=== PATIENT | female | born 1940 | race Caucasian/White ===

== ENCOUNTER 2019-07-13 12:55 | Observation (INO) | payer MEDICARE, OTHER ==
[2019-07-13] MEDS ORDERED: Sodium Chloride 0.9% 10 ML Syringe FLUSH PRN ×2 (12:59→14:00)
--- NOTE | 2019-07-13 13:13 | EDM.PDOC ---
ED HPI GENERAL MEDICAL PROBLEM - General Chief Complaint: Cardiovascular Problem Stated Complaint: CHEST PAIN Time Seen by Provider: 07/13/19 13:00 Source of Information: Reports: Patient History Limitations: Reports: No Limitations - History of Present Illness INITIAL COMMENTS - FREE TEXT/NARRATIVE: 78 YO WM presents to ER complaining of left sided chest pain which began 2 months ago. Pt reports she was seen in the clinic 2 weeks ago and had an evaluation with EKG, CXR, and blood work which patient states was normal as far as she knows. Pt reports over the last month she has noticed some pain in her left arm as well. Pt denies associated shortness of breath, nausea/vomiting, lightheadedness or diaphoresis. Pt denies any recent illnesses. Pt was given a salve to put on her chest which hasn't relieved her symptoms. Pt called the clinic today to get another appointment for these pains and she was told to go to ER for evaluation. Pt denies exertional pain and states pain is worse when she is laying down and less when she is active. Pt denies CAD, Pulmonary dz, or smoking history. Pt denies URI symptoms or fever/chills. No lower extremity swelling, HRT or long travel or sedentary lifestyle. Duration: Chronic, Recurring, Waxing/Waning Location: Reports: Chest Quality: Reports: Ache Severity: Mild Improves with: Reports: None Worsens with: Reports: None Associated Symptoms: Reports: No Other Symptoms, Chest Pain. Denies: Cough, Fever/Chills, Nausea/Vomiting, Shortness of Breath - Related Data Allergies Allergy/AdvReac Type Severity Reaction Status Date / Time amoxicillin [From Augmentin] Allergy Rash Verified 07/13/19 12:59 Cephalosporins Allergy Rash Verified 07/13/19 13:32 clavulanic acid Allergy Rash Verified 07/13/19 12:59 [From Augmentin] Influenza Virus Vaccines Allergy Other Verified 07/13/19 13:32 Home Meds: Home Meds Ascorbate Calcium [Vitamin C] 500 mg PO BID 07/13/19 [History] Calcium Carbonate/Vitamin D3 [Calcium Carbonate/Vitamin D 600 MG-200 Unit] 1 tab PO BID 07/13/19 [History] Carbinoxamine Maleate 4 mg PO QID PRN 07/13/19 [History] Cholecalciferol (Vitamin D3) [Vitamin D3] 1 cap PO DAILY 07/13/19 [History] Lactobacillus Acidophilus [Probiotic] 1 cap PO DAILY 07/13/19 [History] Multivitamin [Daily Multiple Vitamin] 1 tab PO DAILY 07/13/19 [History] Mupirocin 1 applic TOP BID PRN 07/13/19 [History] Rup Rub 1 applic TOP BID 07/13/19 [History] atorvaSTATin [Lipitor] 10 mg PO BEDTIME 07/13/19 [History] ED ROS GENERAL - Review of Systems Review Of Systems: See Below Constitutional: Reports: No Symptoms HEENT: Reports: No Symptoms Respiratory: Reports: No Symptoms Cardiovascular: Reports: Chest Pain Endocrine: Reports: No Symptoms GI/Abdominal: Reports: No Symptoms : Reports: No Symptoms Musculoskeletal: Reports: Arm Pain Skin: Reports: No Symptoms Neurological: Reports: No Symptoms Psychiatric: Reports: No Symptoms Hematologic/Lymphatic: Reports: No Symptoms Immunologic: Reports: No Symptoms ED EXAM, GENERAL - Physical Exam Exam: See Below Exam Limited By: No Limitations General Appearance: Alert, WD/WN, No Apparent Distress Eye Exam: Bilateral Eye: PERRL Nose: Normal Inspection, Normal Mucosa, No Blood Throat/Mouth: Normal Inspection, Normal Lips, Normal Teeth, Normal Gums, Normal Oropharynx, Normal Voice, No Airway Compromise Head: Atraumatic, Normocephalic Neck: Normal Inspection, Supple, Non-Tender, Full Range of Motion Respiratory/Chest: No Respiratory Distress, Lungs Clear, Normal Breath Sounds, No Accessory Muscle Use, Chest Non-Tender Cardiovascular: Normal Peripheral Pulses, Regular Rate, Rhythm, No Edema, No Gallop, No JVD, No Murmur, No Rub GI/Abdominal: Normal Bowel Sounds, Soft, Non-Tender, No Organomegaly, No Distention, No Abnormal Bruit, No Mass Back Exam: Normal Inspection, Full Range of Motion, NT Extremities: Normal Inspection, Normal Range of Motion, Non-Tender, Normal Capillary Refill, No Pedal Edema Neurological: Alert, Oriented, CN II-XII Intact, Normal Cognition, Normal Gait, Normal Reflexes, No Motor/Sensory Deficits Psychiatric: Normal Affect, Normal Mood Skin Exam: Warm, Dry, Intact, Normal Color, No Rash Lymphatic: No Adenopathy EKG INTERPRETATION EKG Date: 07/13/19 Time: 13:12 Rhythm: NSR Rate (Beats/Min): 70 [place]: Normal P-Wave: Present QRS: Normal ST-T: Normal QT: Normal Comparison: NA - No Prior EKG Course - Vital Signs Last Recorded V/S: Last Vital Signs Temp 36.6 C 07/13/19 13:04 Pulse 75 07/13/19 13:04 Resp 16 07/13/19 13:04 BP 146/77 H 07/13/19 13:04 Pulse Ox 99 07/13/19 13:04 - Orders/Labs/Meds Orders: Active Orders 24 hr Category Date Time Status Patient Status Manage Transfer [TRANSFER] Routine ADT 07/13/19 15:11 Active Patient Status [ADT] Routine ADT 07/13/19 15:13 Active Cardiac Monitoring [RC] CONTINUOUS Care 07/13/19 15:13 Active EKG Documentation Completion [RC] ASDIRECTED Care 07/13/19 12:59 Active Oxygen Therapy [RC] PRN Care 07/13/19 15:13 Active Peripheral IV Care [RC] . DIRECTED Care 07/13/19 12:59 Active Up ad Ximena [RC] ASDIRECTED Care 07/13/19 15:13 Active VTE/DVT Education [RC] PER UNIT ROUTINE Care 07/13/19 15:13 Active Vital Signs [RC] Q4H Care 07/13/19 15:13 Active Heart Healthy Diet [DIET] Diet 07/13/19 Lunch Active TROPONIN I [CHEM] Timed Lab 07/13/19 17:00 Ordered Aspirin Med 07/13/19 15:15 Once 324 mg PO ONETIME ONE Nitroglycerin [Nitro-Bid 2%] Med 07/13/19 15:15 Once 1 gm TOP ONETIME ONE Sodium Chloride 0.9% [Saline Flush] Med 07/13/19 12:59 Active 10 ml FLUSH Q8HR PRN Peripheral IV Insertion Adult [OM.PC] Routine Oth 07/13/19 12:59 Ordered Resuscitation Status Routine Resus Stat 07/13/19 15:13 Ordered EKG 12 Lead [EK] Routine Ther 07/13/19 12:59 Ordered Medication Orders Sodium Chloride (Saline Flush) 10 ml FLUSH Q8HR PRN PRN Reason: keep vein open Labs: Laboratory Tests 07/13/19 07/13/19 Range/Units 13:15 13:15 WBC 5.65 (5.00-10.00) 10^3/uL RBC 4.04 (3.80-5.50) 10^6/uL Hgb 12.4 (12.0-16.0) g/dL Hct 37.2 (37.0-47.0) % MCV 92.1 H (82.0-92.0) fL MCH 30.7 (27.0-31.0) pg MCHC 33.3 (32.0-36.0) g/dL RDW 12.5 (11.5-14.5) % Plt Count 262 (150-400) 10^3/uL MPV 9.0 (7.4-10.4) fL Immature Gran % (Auto) 0.2 (0.0-5.0) % Neut % (Auto) 53.9 (50.0-70.0) % Lymph % (Auto) 31.7 (20.0-40.0) % [place] % (Auto) 9.6 H (2.0-8.0) % Eos % (Auto) 3.9 H (1.0-3.0) % Baso % (Auto) 0.7 (0.0-1.0) % Immature Gran # (Auto) 0.01 (0.00-0.50) 10^3/uL Neut # (Auto) 3.05 (2.50-7.00) 10^3/uL Lymph # (Auto) 1.79 (1.00-4.00) 10^3/uL [place] # (Auto) 0.54 (0.10-0.80) 10^3/uL Eos # (Auto) 0.22 (0.10-0.30) 10^3/uL Baso # (Auto) 0.04 (0.00-0.10) 10^3/uL Sodium 138 (136-145) mmol/L Potassium 4.2 (3.3-5.3) mmol/L Chloride 95 L (98-115) mmol/L Carbon Dioxide 27.8 (21.0-32.0) mmol/L Anion Gap 19.4 H (5-15) mmol/L BUN 15 (6-25) mg/dL Creatinine 0.63 (0.51-1.17) mg/dL Est Cr Clr Drug Dosing TNP Estimated GFR (MDRD) > 60 mL/min Glucose 106 H (75 - 99) mg/dL Calcium 9.1 (8.7-10.3) mg/dL Total Bilirubin 0.3 (0.2-1.0) mg/dL AST 23 (15-37) U/L ALT 25 (12-78) U/L Alkaline Phosphatase 33 L (46-116) IU/L Creatine Kinase 143 (26-276) U/L CK-MB (CK-2) 2.00 (0.00-4.30) ng/mL Troponin I 0.04 (0.00-0.070) ng/mL B-Natriuretic Peptide 124 H (0-100) pg/mL Total Protein 6.7 (6.4-8.2) g/dL Albumin 3.40 (3.00-4.80) g/dL Meds: Medications Generic Name Dose Route Start Last Admin Trade Name Freq PRN Reason Stop Dose Admin Sodium Chloride 10 ml 07/13/19 12:59 Saline Flush FLUSH Q8HR PRN keep vein open Departure - Departure Time of Disposition: 15:16 Disposition: Refer to Observation Condition: Good Clinical Impression: Chest pain Referrals: Britney Mars PA-C [Primary Care Provider] - Forms: ED Department Discharge Sepsis Event Note - Focused Exam Vital Signs: Vital Signs Temp Pulse Resp BP Pulse Ox 07/13/19 13:04 36.6 C 75 16 146/77 H 99 Date Exam was Performed: 07/13/19 Time Exam was Performed: 15:15 - My Orders Last 24 Hours: My Active Orders 07/13/19 12:59 EKG Documentation Completion [RC] ASDIRECTED Peripheral IV Care [RC] . DIRECTED Sodium Chloride 0.9% [Saline Flush] 10 ml FLUSH Q8HR PRN Peripheral IV Insertion Adult [OM.PC] Routine EKG 12 Lead [EK] Routine 07/13/19 15:11 Patient Status Manage Transfer [TRANSFER] Routine 07/13/19 15:13 Patient Status [ADT] Routine Cardiac Monitoring [RC] CONTINUOUS Oxygen Therapy [RC] PRN Up ad Ximena [RC] ASDIRECTED VTE/DVT Education [RC] PER UNIT ROUTINE Vital Signs [RC] Q4H Resuscitation Status Routine 07/13/19 15:15 Aspirin 324 mg PO ONETIME ONE Nitroglycerin [Nitro-Bid 2%] 1 gm TOP ONETIME ONE 07/13/19 17:00 TROPONIN I [CHEM] Timed 07/13/19 Lunch Heart Healthy Diet [DIET] - Assessment/Plan Last 24 Hours: My Active Orders 07/13/19 12:59 EKG Documentation Completion [RC] ASDIRECTED Peripheral IV Care [RC] . DIRECTED Sodium Chloride 0.9% [Saline Flush] 10 ml FLUSH Q8HR PRN Peripheral IV Insertion Adult [OM.PC] Routine EKG 12 Lead [EK] Routine 07/13/19 15:11 Patient Status Manage Transfer [TRANSFER] Routine 07/13/19 15:13 Patient Status [ADT] Routine Cardiac Monitoring [RC] CONTINUOUS Oxygen Therapy [RC] PRN Up ad Ximena [RC] ASDIRECTED VTE/DVT Education [RC] PER UNIT ROUTINE Vital Signs [RC] Q4H Resuscitation Status Routine 07/13/19 15:15 Aspirin 324 mg PO ONETIME ONE Nitroglycerin [Nitro-Bid 2%] 1 gm TOP ONETIME ONE 07/13/19 17:00 TROPONIN I [CHEM] Timed 07/13/19 Lunch Heart Healthy Diet [DIET] Assessment:: 1. chest pain Plan: 1. admit to obs- Dr Gary Escamilla 2. nitro/ASA 3. supportive care 4. serial trop I x Q4 x 3
--- NOTE | 2019-07-13 13:38 | CR ---
[id number] RAD/RAD Chest PA And Lateral EXAM: RAD Chest PA And Lateral INDICATION: PAIN. COMPARISON: July 30, 2012. DISCUSSION: Cardiomediastinal silhouette is normal in size and contour. No infiltrate, effusion, pneumothorax, or edema. No radiographically evident rib fracture. IMPRESSION: No acute findings. Arron Dave MD 07/13/19 [id number] Thank you for allowing us to participate in the care of your patient.
[2019-07-13 14:01] LABS: ANION GAP 19.4 mmol/L (5-15); CHLORIDE,CL 95 mmol/L (98-115); SODIUM,NA 138 mmol/L (136-145)
[2019-07-13] MEDS ORDERED: Nitroglycerin 2% Oint 1 GM UD Packet TOP ONE (15:15)
[2019-07-13] MEDS ORDERED: Aspirin 81 MG Tab.Chew PO ONE (15:15)
[2019-07-13] MEDS ORDERED: Mupirocin Crm 15 GM Tube TOP PRN (19:59)
[2019-07-13] MEDS ORDERED: CARBINOXAMINE MALEATE 4 MG PO PRN (19:59)
[2019-07-13] MEDS ORDERED: Calcium Citrate/Vitamin D3 315 MG-250 Unit Tab PO SCH (21:00)
[2019-07-13] MEDS ORDERED: Diclofenac Sodium 1% Gel 100 GM Tube TOP SCH (21:00)
[2019-07-13] MEDS ORDERED: atorvaSTATin 10 MG Tab PO SCH (21:00)
--- NOTE | 2019-07-13 21:42 | HP ---
PATIENT PROFILE: The patient is a 78-year-old white female from [place], [place]. HISTORY OF PRESENT ILLNESS: This very pleasant patient present to the emergency room complaining of left-sided chest pain which actually began 2 months ago. Over the last 2 weeks, the pain has gotten worse. She was seen in the clinic 2 weeks ago and had an EKG, chest x-ray, and blood work, which the patient states was normal as far she knows. The patient has for the last 1 month noticed increased pain in her left arm as well. She denies having coughing, shortness of breath, nausea, vomiting, lightheadedness, or diaphoresis. She denies having any fever or recent illnesses except for slight cold. She had been using some type of ointment to relieve her discomfort. The patient had called the clinic for another appointment and was told to come to the emergency room for further evaluation. The patient denies having any exertional pain, but states that the pain is worse when she lies down and less when she is active. The pain does not otherwise change much with position. The patient denies having any history of coronary artery disease, pulmonary embolism, pulmonary diagnosis, or smoking history. She denies having any lower extremity swelling, hormone replacement therapy, or any long travels or sedentary lifestyles. Severity is mild to moderate. PAST MEDICAL HISTORY: No major medical problems. PAST SURGICAL HISTORY: No major surgical problems. MEDICATIONS: Home medications include: 1. Vitamin C 500 mg b.i.d. 2. Calcium carbonate with vitamin D3 at 600/200 units one tablet b.i.d. 3. Carbinoxamine maleate 4 mg up to 4 times a day on a p.r.n. basis (antihistamine). 4. Vitamin D3 one capsule daily. 5. Lactobacillus acidophilus probiotic 1 capsule daily. 6. Multivitamin tablet 1 daily. 7. Mupirocin ointment b.i.d. on a p.r.n. basis. 8. Rub-Rub application 1 b.i.d. 9. Atorvastatin 10 mg at bedtime. FAMILY HISTORY: Nil significant. REVIEW OF SYSTEMS: HEAD: No complaints. NECK: Complains of pain in the left side of the neck. EYES: No complaints. EARS, NOSE, AND THROAT: No complaints. RESPIRATORY: No complaints. CARDIOVASCULAR: Complaints of chest pain on the left side. It is not made worse upon breathing or by respiratory effort. ENDOCRINE: No complaints. GI SYSTEM: No complaints. SYSTEM: No complaints. MUSCULOSKELETAL: See present history. SKIN: No complaints. NEUROLOGICAL: No complaints. PSYCHIATRIC: No complaints. HEMATOLOGICAL: No complaints. IMMUNOLOGICAL: No complaints. PHYSICAL EXAMINATION: GENERAL: Reveals a very pleasant, elderly patient, in no immediate distress. She was examined in the room. She is alert, well oriented to space, time, and person. VITAL SIGNS: Rhythm is 70, temperature 36.6 centigrade, pulse 75, respirations 16, blood pressure 146/77, oxygen saturation 99%. HEAD: Negative. EYES: Arcus senilis. EARS, NOSE, AND THROAT: Normal. NECK: Supple. Full range of motion. No midline swellings. Carotid pulses are full and equal. Trachea is midline. No lymph node enlargement. HEART: Regular rhythm. No thrills. No murmurs. LUNGS: Clear to percussion and auscultation. ABDOMEN: Soft. No masses. No tenderness. No hepatosplenomegaly. No abnormal pulsations. EXTREMITIES: Normal. No peripheral edema noted. Femoral pulses are full and equal. NEUROLOGICAL: Essentially intact. RECTAL: Deferred. LABORATORY DATA: EKG shows normal sinus rhythm. Olive normal. QRS normal, ST-segment normal, QT normal. Her hemoglobin is 12.4, white count 5.65, platelet count is 262. MCV is slightly high at 92.1, normal 92. Her complete metabolic panel shows an anion gap of 19.4, normal 15. Otherwise, all other values are negative. Beta-natriuretic BNP was 124, total protein is 6.7. IMPRESSION/PLAN: Elderly patient with left-sided chest pain. Question atypical angina, question non ST-segment elevation myocardial infarction, question musculoskeletal. Plan: Serial enzymes and close observation. Repeat EKGs and continue with some of the old medications including atorvastatin. /[id number]/MODL MTDD
[2019-07-13] MEDS: Clopidogrel 75 MG Tab PO SCH (22:46)
[2019-07-13] MEDS: Enoxaparin 60 MG/0.6 ML Syringe SUBCUT SCH (22:46)
[2019-07-14] MEDS ORDERED: Multivitamins with Minerals/Iron/Folic Acid/Lycopene Tab PO SCH (09:00)
[2019-07-14] MEDS ORDERED: Diclofenac Sodium 1% Gel 100 GM Tube TOP SCH (09:00)
[2019-07-14] MEDS ORDERED: B.Bifidum/B.Longum/L.Acidophilus/L.Rhamnosus (Probiotic) Cap PO SCH (09:00)
[2019-07-14] MEDS ORDERED: Cholecalciferol (Vitamin D3) 25 MCG Tab PO SCH (09:00)
[2019-07-14] MEDS ORDERED: Calcium Citrate/Vitamin D3 315 MG-250 Unit Tab PO SCH (09:00)
[2019-07-14] MEDS: Enoxaparin 60 MG/0.6 ML Syringe SUBCUT SCH (09:06)
[2019-07-14] MEDS: Clopidogrel 75 MG Tab PO SCH (09:07)
--- NOTE | 2019-07-14 10:40 | PCM.DCSUM1 ---
Discharge Summary - Hospital Course Diagnosis: Stroke: No - Discharge Data Discharge Date: 07/14/19 Discharge Disposition: Home, Self-Care 01 Condition: Good - Referral to Home Health Primary Care Physician: Britney Mars PA-C - Patient Instructions Diet: Usual Diet as Tolerated Activity: As Tolerated Driving: May Drive Today Showering/Bathing: May Shower Notify Provider of: Increased Pain, Nausea and/or Vomiting Other/Special Instructions: Medical care if the pain changes, increases or if associated with sweating or radiating down into your arm or into your neck or back - Discharge Plan *PRESCRIPTION DRUG MONITORING PROGRAM REVIEWED*: Not Applicable *COPY OF PRESCRIPTION DRUG MONITORING REPORT IN PATIENT RANDI: Not Applicable Prescriptions/Med Rec: Celecoxib [CeleBREX] 100 mg PO DAILY #30 cap Home Medications: Home Meds Ascorbate Calcium [Vitamin C] 500 mg PO BID 07/13/19 [History] Calcium Carbonate/Vitamin D3 [Calcium Carbonate/Vitamin D 600 MG-200 Unit] 1 tab PO BID 07/13/19 [History] Carbinoxamine Maleate 4 mg PO QID PRN 07/13/19 [History] Cholecalciferol (Vitamin D3) [Vitamin D3] 1 cap PO DAILY 07/13/19 [History] Echinacea [Echinacea Herb] 1 cap PO DAILY 07/13/19 [History] Lactobacillus Acidophilus [Probiotic] 1 cap PO DAILY 07/13/19 [History] Multivitamin [Daily Multiple Vitamin] 1 tab PO DAILY 07/13/19 [History] Mupirocin 1 applic TOP BID PRN 07/13/19 [History] Rup Rub 1 applic TOP BID 07/13/19 [History] atorvaSTATin [Lipitor] 10 mg PO BEDTIME 07/13/19 [History] Celecoxib [CeleBREX] 100 mg PO DAILY #30 cap 07/14/19 [Rx] Referrals: Britney Mars PA-C [Primary Care Provider] - 07/21/19 10:00 am - Discharge Summary/Plan Comment DC Time >30 min.: Yes Discharge Summary/Plan Comment: Final diagnosis Chest wall pain, NON-specific, suspect inflammatory flare costochondritis Prehospital/ED history/work-up 78-year-old pleasant female presented to the ED yesterday due to left-sided chest pain which began ~2 months ago. Patient was evaluated outpatient [facility] had a EKG, CXR, and blood work. EKG reviewed by me dated June [address] aberrancy. Denotes over the last month she has noticed some pain in her left arm as well. With her pain she denies any associated SOB, nausea vomiting or any lightheadedness or diaphoresis. Pt denies any recent illnesses. Patient did noted topical NSAID anterior chest wall without any relief in her symptoms. No exertional pain and stated pain is worse when she is laying down and less when she is active. Pt denies CAD, Pulmonary dz, or smoking history. Pt denies URI symptoms or fever/chills. No lower extremity swelling, HRT or long travel or sedentary lifestyle. Duration: Chronic, Recurring, Waxing/Waning. He was admitted overnight for rule out WA. Favorable lipid profile ED findings Initial troponin negative EKG NSR, Vital signs stable Electrolytes normal chest X-ray normal BNP 126 Hospital course Was admitted into observation, reviewed overnight ECG strips, normal sinus rhythm without any current/aberrancy. Did have Nitropaste placed on her without any benefit, she slept well, her anterior chest wall pain waxed and waned however this appeared positional. Pain stable, no complications, no adverse reactions to medications treatments. She tolerated her diet well. She had no shortness of breath. Lipids CHO 199 HDL 77 LDL 104 Triglycerides 89 Medication changes/adjustments upon discharge Celebrex 100 mg p.o. twice daily 2 weeks, no PPI needed. Patient can continue all other home medications Disposition/MDM/overall plan --Patient will be discharged from [facility] self-alf --Echocardiogram morning of discharge [facility] --ACS has been ruled out, low test probability of CAD very doubtful of any flow- limiting disease due to pain characteristics, duration, quality, intensity, relieving/aggravating factors and low CV risks and the fact the patient did not rule IN for CAD on predictability models. Recommendations at follow-up --Could consider Coronary Calcium Scoring, however would avoid stress testing as she has very low probability of CAD with high chance of false positives. --Likely not a good ASA candidate for primary prevention based off sx, PHX, family hx. --Review echo - General Info Functional Status: Reports: Other (Low-level 2/10 pain reproducible anterior left-sided chest wall pain) - Review of Systems General: Denies: Fever, Weakness, Fatigue HEENT: Reports: No Symptoms Pulmonary: Reports: No Symptoms Cardiovascular: Reports: Chest Pain, Edema (1+ BLE ankle edema). Denies: Dyspnea on Exertion, Orthopnea, PND, Lightheadedness Gastrointestinal: Reports: No Symptoms Genitourinary: Reports: No Symptoms Musculoskeletal: Reports: Other (chest wall pain) Skin: Reports: No Symptoms Neurological: Reports: No Symptoms Psychiatric: Reports: No Symptoms - Patient Data Vitals - Most Recent: Last Vital Signs Temp 97.4 F 07/14/19 06:50 Pulse 64 07/14/19 06:50 Resp 16 07/14/19 06:50 BP 116/70 07/14/19 06:50 Pulse Ox 98 07/14/19 06:50 Weight - Most Recent: 133 lb 14.4 oz I&O - Last 24 hours: Intake & Output 07/13/19 07/14/19 07/14/19 22:59 06:59 14:59 Intake Total 400 0 Balance 400 0 Lab Results - Last 24 hrs: Laboratory Results - last 24 hr 07/13/19 07/13/19 07/13/19 Range/Units 13:15 13:15 17:02 WBC 5.65 (5.00-10.00) 10^3/uL RBC 4.04 (3.80-5.50) 10^6/uL Hgb 12.4 (12.0-16.0) g/dL Hct 37.2 (37.0-47.0) % MCV 92.1 H (82.0-92.0) fL MCH 30.7 (27.0-31.0) pg MCHC 33.3 (32.0-36.0) g/dL RDW 12.5 (11.5-14.5) % Plt Count 262 (150-400) 10^3/uL MPV 9.0 (7.4-10.4) fL Immature Gran % (Auto) 0.2 (0.0-5.0) % Neut % (Auto) 53.9 (50.0-70.0) % Lymph % (Auto) 31.7 (20.0-40.0) % Hughes % (Auto) 9.6 H (2.0-8.0) % Eos % (Auto) 3.9 H (1.0-3.0) % Baso % (Auto) 0.7 (0.0-1.0) % Immature Gran # (Auto) 0.01 (0.00-0.50) 10^3/uL Neut # (Auto) 3.05 (2.50-7.00) 10^3/uL Lymph # (Auto) 1.79 (1.00-4.00) 10^3/uL Hughes # (Auto) 0.54 (0.10-0.80) 10^3/uL Eos # (Auto) 0.22 (0.10-0.30) 10^3/uL Baso # (Auto) 0.04 (0.00-0.10) 10^3/uL Sodium 138 (136-145) mmol/L Potassium 4.2 (3.3-5.3) mmol/L Chloride 95 L (98-115) mmol/L Carbon Dioxide 27.8 (21.0-32.0) mmol/L Anion Gap 19.4 H (5-15) mmol/L BUN 15 (6-25) mg/dL Creatinine 0.63 (0.51-1.17) mg/dL Est Cr Clr Drug Dosing TNP Estimated GFR (MDRD) > 60 mL/min Glucose 106 H (75 - 99) mg/dL Calcium 9.1 (8.7-10.3) mg/dL Total Bilirubin 0.3 (0.2-1.0) mg/dL AST 23 (15-37) U/L ALT 25 (12-78) U/L Alkaline Phosphatase 33 L (46-116) IU/L Creatine Kinase 143 (26-276) U/L CK-MB (CK-2) 2.00 (0.00-4.30) ng/mL Troponin I 0.04 0.04 (0.00-0.070) ng/mL B-Natriuretic Peptide 124 H (0-100) pg/mL Total Protein 6.7 (6.4-8.2) g/dL Albumin 3.40 (3.00-4.80) g/dL 07/13/19 07/14/19 Range/Units 22:00 07:01 WBC (5.00-10.00) 10^3/uL RBC (3.80-5.50) 10^6/uL Hgb (12.0-16.0) g/dL Hct (37.0-47.0) % MCV (82.0-92.0) fL MCH (27.0-31.0) pg MCHC (32.0-36.0) g/dL RDW (11.5-14.5) % Plt Count (150-400) 10^3/uL MPV (7.4-10.4) fL Immature Gran % (Auto) (0.0-5.0) % Neut % (Auto) (50.0-70.0) % Lymph % (Auto) (20.0-40.0) % Hughes % (Auto) (2.0-8.0) % Eos % (Auto) (1.0-3.0) % Baso % (Auto) (0.0-1.0) % Immature Gran # (Auto) (0.00-0.50) 10^3/uL Neut # (Auto) (2.50-7.00) 10^3/uL Lymph # (Auto) (1.00-4.00) 10^3/uL Hughes # (Auto) (0.10-0.80) 10^3/uL Eos # (Auto) (0.10-0.30) 10^3/uL Baso # (Auto) (0.00-0.10) 10^3/uL Sodium (136-145) mmol/L Potassium (3.3-5.3) mmol/L Chloride (98-115) mmol/L Carbon Dioxide (21.0-32.0) mmol/L Anion Gap (5-15) mmol/L BUN (6-25) mg/dL Creatinine (0.51-1.17) mg/dL Est Cr Clr Drug Dosing Estimated GFR (MDRD) mL/min Glucose (75 - 99) mg/dL Calcium (8.7-10.3) mg/dL Total Bilirubin (0.2-1.0) mg/dL AST (15-37) U/L ALT (12-78) U/L Alkaline Phosphatase (46-116) IU/L Creatine Kinase (26-276) U/L CK-MB (CK-2) (0.00-4.30) ng/mL Troponin I 0.06 0.06 (0.00-0.070) ng/mL B-Natriuretic Peptide (0-100) pg/mL Total Protein (6.4-8.2) g/dL Albumin (3.00-4.80) g/dL Med Orders - Current: Current Medications Atorvastatin Calcium (Lipitor) 10 mg PO BEDTIME [facility] Last Admin: 07/13/19 22:46 Dose: 10 mg Calcium Citrate (Calcium Citrate + D) 2 tab PO BID [facility] Last Admin: 07/14/19 08:35 Dose: Not Given Cholecalciferol (Vitamin D3) 25 mcg PO DAILY [facility] Last Admin: 07/14/19 08:35 Dose: Not Given Clopidogrel Bisulfate (Plavix) 75 mg PO DAILY [facility] Last Admin: 07/14/19 09:07 Dose: Not Given Diclofenac Sodium (Voltaren 1% Gel) 0 gm TOP BID [facility] Last Admin: 07/14/19 08:35 Dose: Not Given Enoxaparin Sodium (Lovenox) 60 mg SUBCUT Q12H [facility] Last Admin: 07/14/19 09:06 Dose: Not Given Lactobacillus Acidophilus/Rhamnosus (Multi-Zeny Plus) 1 cap PO DAILY [facility] Last Admin: 07/14/19 08:35 Dose: Not Given Multivitamins/Minerals (Centrum) 1 tab PO DAILY [facility] Last Admin: 07/14/19 08:35 Dose: Not Given Mupirocin (Bactroban Crm) 0 gm TOP BID PRN PRN Reason: nasal sores Non-Formulary Medication (Carbinoxamine Maleate [Carbinoxamine Maleate]) 4 mg PO QID PRN PRN Reason: Allergies Sodium Chloride (Saline Flush) 10 ml FLUSH Q8HR PRN PRN Reason: keep vein open Last Admin: 07/13/19 23:00 Dose: 10 ml Discontinued Medications Aspirin (Aspirin) 324 mg PO ONETIME ONE Stop: 07/13/19 15:16 Last Admin: 07/13/19 17:01 Dose: 324 mg Calcium Citrate (Calcium Citrate + D) 2 tab PO BID [facility] Last Admin: 07/14/19 07:33 Dose: Not Given Diclofenac Sodium (Voltaren 1% Gel) 1 gm TOP BID [facility] Last Admin: 07/14/19 08:33 Dose: Not Given Nitroglycerin (Nitro-Bid 2%) 1 gm TOP ONETIME ONE Stop: 07/13/19 15:16 Last Admin: 07/13/19 17:01 Dose: 1 gm Sodium Chloride (Saline Flush) 10 ml FLUSH Q8HR PRN PRN Reason: keep vein open - Exam Quality Assessment: Denies: Supplemental Oxygen General: Reports: Alert, Oriented, Cooperative, No Acute Distress Neck: Reports: No JVD Lungs: Reports: Clear to Auscultation, Normal Respiratory Effort Cardiovascular: Reports: Regular Rate, Regular Rhythm GI/Abdominal Exam: Soft (Female) Exam: Deferred Rectal (Female) Exam: Deferred Back Exam: Denies: CVA Tenderness (L), CVA Tenderness (R) Extremities: Pedal Edema Skin: Reports: Dry Neurological: Reports: No New Focal Deficit Psy/Mental Status: Reports: Alert, Normal Affect, Normal Mood Physical Findings Comments:: Reproduible dull, 2/10 chest wall pain on palpation, no radiation
== END 2019-07-14 11:00 | disposition home or self-care (01) ==
LOC: KA.ED 12:55 → KA.MS 15:11
PROVIDERS: ADMIT Physician Assistant Medical; ATTEND Family Medicine
DX: R07.89 Other chest pain (principal); Z88.1 Allergy status to other antibiotic agents; Z88.8 Allergy status to other drugs, medicaments and biological substances; Z88.7 Allergy status to serum and vaccine; Z79.899 Other long term (current) drug therapy
CPT/HCPCS: 36415; 71046; 80053; 82550; 82553; 83880; 84484; 85025; 93005; 96372; 99284; 99285-25; A9270-GY; G0378; J1650

== ENCOUNTER 2021-03-17 16:32 | Emergency (ER) | payer MEDICARE, OTHER ==
[2021-03-17] MEDS ORDERED: Aspirin 81 MG Tab.Chew PO ONE (16:45)
[2021-03-17 17:11] LABS: ANION GAP 12.1 mmol/L (5-15); CHLORIDE,CL 99 mmol/L (98-107); SODIUM,NA 137 mmol/L (136-145)
--- NOTE | 2021-03-17 18:10 | EDM.PDOC ---
ED HPI GENERAL MEDICAL PROBLEM - General Chief Complaint: General Stated Complaint: CHEST PAIN Time Seen by Provider: 03/17/21 16:33 Source of Information: Reports: Patient, Provider - History of Present Illness INITIAL COMMENTS - FREE TEXT/NARRATIVE: 80-year-old female presents to the emergency room referred by her primary care at the [facility] Britney mars. Patient was seen today with a complaint an episode of chest pain that occurred around the sys dir hours approximately 3AM. She reports that chest pain was severe ache and was experiencing's radiation down the left side of her body. This did resolve. She now reports that she is just having a mild ache. And no longer experiencing burning sensation down her left side of her body. She denies any significant diaphoretic episodes. She denies increased shortness of breath although she was seen by her ship loader earlier this week and was recently diagnosed with mild COPD, asthma. She has never had a history of chest pain or coronary artery disease. She does have a history of cholesterol. She did have a stress test but states it was many years ago she is not experiencing any diaphoretic episodes nausea vomiting, belly pain or jaw pain or arm pain currently. He had an EKG at the clinic which showed a normal sinus rhythm. She reports no orthopnea and no PND. She denies any palpitations. She denies any history of claudication. It was recommended that she have further work-up with lab drawn for troponin and was brought here by a friend from the clinic for further work- up. Onset Date: 03/16/21 Onset Time: 03:00 Duration: Minutes:, Resolved Prior to Arrival Location: Reports: Chest, Upper Extremity, Left, Lower Extremity, Left Quality: Reports: Ache Severity: Severe Improves with: Reports: None Worsens with: Reports: None Associated Symptoms: Denies: Diaphoresis, Fever/Chills, Nausea/Vomiting, Seizure, Shortness of Breath, Syncope, Weakness Left Chest Pain Score (Numeric/FACES): 1 - Related Data Allergies Allergy/AdvReac Type Severity Reaction Status Date / Time amoxicillin [From Augmentin] Allergy Rash Verified 03/17/21 16:53 Cephalosporins Allergy Rash Verified 03/17/21 16:53 clavulanic acid Allergy Rash Verified 03/17/21 16:53 [From Augmentin] Influenza Virus Vaccines Allergy Other Verified 10/22/21 16:53 Home Meds: Home Meds Ascorbate Calcium [Vitamin C] 500 mg PO BID 07/13/19 [History] Calcium Carbonate/Vitamin D3 [Calcium Carbonate/Vitamin D 600 MG-200 Unit] 1 tab PO BID 07/13/19 [History] Carbinoxamine Maleate 4 mg PO QID PRN 07/13/19 [History] Cholecalciferol (Vitamin D3) [Vitamin D3] 1 cap PO DAILY 07/13/19 [History] Echinacea [Echinacea Herb] 1 cap PO DAILY 07/13/19 [History] Lactobacillus Acidophilus [Probiotic] 1 cap PO DAILY 07/13/19 [History] Multivitamin [Daily Multiple Vitamin] 1 tab PO DAILY 07/13/19 [History] Mupirocin 1 applic TOP BID PRN 07/13/19 [History] Rup Rub 1 applic TOP BID 07/13/19 [History] atorvaSTATin [Lipitor] 10 mg PO BEDTIME 07/13/19 [History] Celecoxib [CeleBREX] 100 mg PO DAILY #30 cap 07/14/19 [Rx] Past Medical History HEENT History: Reports: Allergic Rhinitis, Sinusitis Cardiovascular History: Reports: High Cholesterol Respiratory History: Reports: None Gastrointestinal History: Reports: None Genitourinary History: Reports: None SEAMING INSPECTOR History: Reports: None Musculoskeletal History: Reports: Arthritis Neurological History: Reports: None Psychiatric History: Reports: None Endocrine/Metabolic History: Reports: None Hematologic History: Reports: None Immunologic History: Reports: None Oncologic (Cancer) History: Reports: None Dermatologic History: Reports: Eczema - Past Surgical History Head Surgeries/Procedures: Reports: None GI Surgical History: Reports: Colonoscopy, EGD Female Surgical History: Reports: Other (See Below) Other Female Surgeries/Procedures: fibroid tumor removed from uterus in the Social & Family History - Family History Family Medical History: No Pertinent Family History - Tobacco Use Tobacco Use Status *Q: Never Tobacco User - Caffeine Use Caffeine Use: Reports: Coffee, Tea - Recreational Drug Use Recreational Drug Use: No ED ROS GENERAL - Review of Systems Review Of Systems: See Below Constitutional: Reports: No Symptoms HEENT: Reports: No Symptoms Respiratory: Reports: Shortness of Breath (Recently diagnosed with mild COPD, asthma. Patient's ship loader this week) Cardiovascular: Reports: Chest Pain. Denies: Blood Pressure Problem, Dyspnea on Exertion, Edema, Lightheadedness, Orthopnea, Palpitations, PND, Syncope Endocrine: Reports: No Symptoms GI/Abdominal: Reports: No Symptoms : Reports: No Symptoms Musculoskeletal: Reports: No Symptoms Skin: Reports: No Symptoms Neurological: Reports: No Symptoms, Other (reports burning sensation down her arm and leg during this episode of chest achiness last night) Psychiatric: Reports: Anxiety Hematologic/Lymphatic: Reports: No Symptoms Immunologic: Reports: No Symptoms ED EXAM, GENERAL - Physical Exam Exam: See Below Exam Limited By: No Limitations General Appearance: Alert, WD/WN, No Apparent Distress Eye Exam: Bilateral Eye: EOMI Ears: Hearing Grossly Normal Nose: Normal Inspection, Normal Mucosa Throat/Mouth: Normal Inspection, Normal Voice, No Airway Compromise Head: Atraumatic Neck: Normal Inspection, Supple, Non-Tender, Full Range of Motion. No: Carotid Bruit, Lymphadenopathy (L), Lymphadenopathy (R), Thyromegaly Respiratory/Chest: No Respiratory Distress, Lungs Clear, Normal Breath Sounds, No Accessory Muscle Use, Chest Non-Tender Cardiovascular: Normal Peripheral Pulses, Regular Rate, Rhythm, No Murmur GI/Abdominal: Soft, Non-Tender Back Exam: Normal Inspection Extremities: Normal Inspection, Normal Range of Motion, Non-Tender, No Pedal Edema Neurological: Alert, Oriented, CN II-XII Intact, No Motor/Sensory Deficits Psychiatric: Normal Affect, Normal Mood Skin Exam: Warm, Dry, Intact, Normal Color, No Rash Lymphatic: No Adenopathy #1 Interpretation EKG Date: 03/17/21 Time: 16:50 Rhythm: NSR Rate (Beats/Min): 66 [place]: Normal P-Wave: Present QRS: Normal ST-T: Normal QT: Normal Comparison: No Change EKG Interpretation Comments: Normal sinus rhythm normal ECG Course - Vital Signs Last Recorded V/S: Last Vital Signs Temp 97.4 F 03/17/21 16:35 Pulse 69 03/17/21 16:35 Resp 16 03/17/21 16:35 BP 151/94 H 03/17/21 16:35 Pulse Ox 98 03/17/21 16:35 - Orders/Labs/Meds Orders: Active Orders 24 hr Category Date Time Status EKG 12 Lead [EK] Stat Ther 03/17/21 16:45 Ordered Labs: Laboratory Tests 10/22/21 10/22/21 Range/Units 16:45 16:45 WBC 5.92 (5.00-10.00) 10^3/uL RBC 4.30 (3.80-5.50) 10^6/uL Hgb 13.2 (12.0-16.0) g/dL Hct 40.2 (37.0-47.0) % MCV 93.5 H (82.0-92.0) fL MCH 30.7 (27.0-31.0) pg MCHC 32.8 (32.0-36.0) g/dL RDW 12.6 (11.5-14.5) % Plt Count 291 (150-400) 10^3/uL MPV 8.9 (7.4-10.4) fL Immature Gran % (Auto) 0.2 (0.0-5.0) % Neut % (Auto) 63.6 (50.0-70.0) % Lymph % (Auto) 26.7 (20.0-40.0) % Noble % (Auto) 6.8 (2.0-8.0) % Eos % (Auto) 1.9 (1.0-3.0) % Baso % (Auto) 0.8 (0.0-1.0) % Neut # (Auto) 3.77 (2.50-7.00) 10^3/uL Lymph # (Auto) 1.58 (1.00-4.00) 10^3/uL Noble # (Auto) 0.40 (0.10-0.80) 10^3/uL Eos # (Auto) 0.11 (0.10-0.30) 10^3/uL Baso # (Auto) 0.05 (0.00-0.10) 10^3/uL Immature Gran # (Auto) 0.01 (0.00-0.50) 10^3/uL Sodium 137 (136-145) mmol/L Potassium 3.5 (3.5-5.1) mmol/L Chloride 99 (98-107) mmol/L Carbon Dioxide 29.4 (21.0-32.0) mmol/L Anion Gap 12.1 (5-15) mmol/L BUN 15 (7-18) mg/dL Creatinine 0.63 (0.51-1.17) mg/dL Est Cr Clr Drug Dosing 56.33 mL/min Estimated GFR (MDRD) > 60 mL/min Glucose 132 (70-140) mg/dL Calcium 9.8 (8.7-10.3) mg/dL Total Bilirubin 0.3 (0.2-1.0) mg/dL AST 23 (15-37) U/L ALT 31 (14-63) U/L Alkaline Phosphatase 52 (46-116) U/L Troponin I High Sens 7.900 (0-51.000) pg/mL Total Protein 7.8 (6.4-8.2) g/dL Albumin 3.96 (3.40-5.00) g/dL Meds: Medications Discontinued Medications Generic Name Dose Route Start Last Admin Trade Name Jai PRN Reason Stop Dose Admin Aspirin 324 mg 03/17/21 16:45 03/17/21 16:53 Aspirin 81 Mg Tab.Chew PO 03/17/21 16:46 324 mg ONETIME ONE Administration - Re-Assessments/Exams Free Text/Narrative Re-Assessment/Exam: 03/17/21 18:09 Patient just reports a dull ache which has been there since yesterday morning. She feels her symptoms have almost entirely resolved. Departure - Departure Time of Disposition: 18:10 Disposition: Home, Self-Care 01 Clinical Impression: Atypical angina - Discharge Information Instructions: Coronary Artery Disease, Female Referrals: Britney Mars PA-C [Primary Care Provider] - Forms: ED Department Discharge Additional Instructions: 1. Avoid exertion over the weekend. 2. Begin daily baby aspirin. 3. If you have return of chest pain, and or associated jaw shoulder arm pain or burning that does not relieved within a few minutes you should return back to the emergency room for further work-up. 4. Recommend follow back up with Britney for possible stress test or cardiac consult. Sepsis Event Note (ED) - Evaluation Sepsis Screening Result: No Definite Risk - Focused Exam Vital Signs: Vital Signs Temp Pulse Resp BP Pulse Ox 03/17/21 16:35 97.4 F 69 16 151/94 H 98 - My Orders Last 24 Hours: My Active Orders 03/17/21 16:45 EKG 12 Lead [EK] Stat - Assessment/Plan Last 24 Hours: My Active Orders 03/17/21 16:45 EKG 12 Lead [EK] Stat Assessment:: Angina Plan: 1. Avoid exertion over the weekend. 2. Begin daily baby aspirin. 3. If you have return of chest pain, and or associated jaw shoulder arm pain or burning that does not relieved within a few minutes you should return back to the emergency room for further work-up. 4. Recommend follow back up with Britney for possible stress test or cardiac consult.
== END 2021-03-17 18:20 | disposition home or self-care (01) ==
LOC: KA.ED 16:32
DX: I20.8 Other forms of angina pectoris (principal); J44.9 Chronic obstructive pulmonary disease, unspecified; E78.00 Pure hypercholesterolemia, unspecified; Z79.899 Other long term (current) drug therapy; Z88.0 Allergy status to penicillin; Z88.7 Allergy status to serum and vaccine; Z88.1 Allergy status to other antibiotic agents
CPT/HCPCS: 36415; 80053; 84484; 85025; 93005; 93010; 99284; 99285-25; A9270-GY

== ENCOUNTER 2022-02-22 20:17 | Emergency (ER) | payer MEDICARE, OTHER ==
[2022-02-22] MEDS: HYDROmorphone 1 MG/ML Syringe IVPUSH ONE (20:59)
[2022-02-22] MEDS: Sodium Chloride 0.9% 1,000 ML IV ONE (20:59)
[2022-02-22] MEDS: Ketorolac 30 MG/ML SDV IVPUSH ONE (21:06)
[2022-02-22 21:17] LABS: ANION GAP 11.3 mmol/L (5-15)
[2022-02-22] MEDS: Iopamidol 755 Mg/ML 75 ML Bottle IVPUSH ONE (21:49)
[2022-02-22] MEDS: Sodium Chloride 0.9% 50 ML IV SCH (21:49)
== END 2022-02-22 23:52 | disposition home or self-care (01) ==
LOC: SUPCPDRO 20:17 → MERGE 20:17 → KA.ED 20:17
DX: R14.0 Abdominal distension (gaseous) (principal); K59.00 Constipation, unspecified; E78.00 Pure hypercholesterolemia, unspecified; Z88.0 Allergy status to penicillin; Z88.1 Allergy status to other antibiotic agents; Z88.7 Allergy status to serum and vaccine; Z79.899 Other long term (current) drug therapy
CPT/HCPCS: 36415; 74177; 80053; 81001; 83690; 85025; 96361; 96374; 96375; 99284; 99284-25; J1170; J1885; J7030; Q9967